=== PATIENT | female | born 1965 | race African-American/Black ===

== ENCOUNTER → 2017-09-06 | Emergency (ER) | payer BC ==
[~2017-09-06] VITALS: Ht 172.7 cm; Wt 145.1 kg
[~2017-09-06] MED LIST: ADVAIR HFA 230/12 GM; EDARBYCLOR 40-1 EACH
== END | disposition left against medical advice (07) ==
LOC: ER 14:44
DX: Z53.20 Procedure and treatment not carried out because of patient's decision for unspecified reasons (principal)